=== PATIENT | female | born 1995 | race Hispanic/Latino ===

== ENCOUNTER 2019-05-01 15:36 | Emergency (ER) | payer SELFPAY ==
[~2019-05-01] VITALS: Ht 160 cm; Wt 66.2 kg
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
[2019-05-01] MEDS ORDERED: IBUPROFEN 600 MG TAB ONE (16:44)
[2019-05-01] MEDS ORDERED: IBUPROFEN 600 MG TAB PO STA (17:07)
[2019-05-01] MEDS ORDERED: SODIUM CHLORIDE 0.9% 50ML 50 ML ONE (17:40)
--- NOTE | 2019-05-01 18:20 | NUR ---
REPORT TO ILDEFONSO MEZA
--- NOTE | 2019-05-01 19:21 | Diagnostic Imaging Report ---
EXAM: CT Abdomen WITH contrast INDICATION: right groin pain, hernia? COMPARISON: None. TECHNIQUE: Abdomen was scanned utilizing a multidetector helical scanner from the lung base to the iliac crest after administration of IV contrast. Coronal and sagittal reformations were obtained. Dose modulation, iterative reconstruction, and/or weight based adjustment of the mA/kV was utilized to reduce the radiation dose to as low as reasonably achievable. Routine protocol was performed. Scan was performed when during portal venous phase. IV CONTRAST: 150 mL of Omnipaque 300 ORAL CONTRAST: Water COMPLICATIONS: None RADIATION DOSE: Total DLP: 413.32 mGy-cm Estimated effective dose: (DLP x 0.015 x size factor) mSv CTDIvol has been reviewed. It is below the limits set by the Radiation Protocol Committee (RPC). FINDINGS: LINES and TUBES: None. LOWER THORAX: Unremarkable HEPATOBILIARY: No focal hepatic lesions. No biliary ductal dilation. GALLBLADDER: No radio-opaque stones or sludge. No wall thickening. SPLEEN: No splenomegaly. PANCREAS: No focal masses or ductal dilatation. ADRENALS: No adrenal nodules KIDNEYS/URETERS: Kidneys enhance symmetrically. No hydronephrosis. No cystic or solid mass lesions. No stones. GI TRACT: No abnormal distention, wall thickening, or evidence of bowel obstruction. LYMPH NODES: No lymphadenopathy. VESSELS: Unremarkable. PERITONEUM / RETROPERITONEUM: No free air or fluid. BONES: Unremarkable. SOFT TISSUES: Unremarkable. IMPRESSION: No evidence of groin hernia. No acute finding of the abdomen or pelvis. Signed by: Rodrick Cohen MD on 05/01/2019 7:18 PM
[2019-05-01] MEDS ORDERED: CEPHALEXIN500 MG PO (19:43)
[2019-05-01] MEDS ORDERED: IBUPROFEN400 MG PO (19:44)
== END 2019-05-01 19:53 | disposition home or self-care (01) ==
LOC: FSED 15:36
DX: R50.9 Fever, unspecified (principal); R19.7 Diarrhea, unspecified; A08.4 Viral intestinal infection, unspecified; L04.3 Acute lymphadenitis of lower limb
CPT/HCPCS: 74177; 80053; 81003; 81025; 85025; 87400; 99283